=== PATIENT | female | born 1965 | race Hispanic/Latino ===

== ENCOUNTER 2021-08-19 02:48 | Emergency (ER) | payer SELFPAY | END 2021-08-19 03:50 | disposition home or self-care (01) | LOC: CSHERS 02:48 | DX: L72.3 Sebaceous cyst (principal) | CPT/HCPCS: 10060 ==

== ENCOUNTER 2022-01-05 19:01 | Emergency (ER) | payer SELFPAY ==
[2022-01-05] MEDS ORDERED: Mag-Al Plus 1200 MG/1200 MG/120 MG/30 ML UDCUP ONE (20:20)
[2022-01-05] MEDS ORDERED: Lidocaine Viscous Sol 2% 15 ml UD Cup ONE (20:20)
[2022-01-05] MEDS ORDERED: Sucralfate 1 GM/10 ML UDCUP ONE (20:22)
[2022-01-05] MEDS ORDERED: Dexamethasone 10 MG/ML VIAL ONE (20:22)
[2022-01-05] MEDS ORDERED: Ketorolac Tromethamine 30 MG/ML VIAL ONE (20:22)
[2022-01-05] MEDS ORDERED: Ondansetron PF 4 MG/2 ML Vial ONE (20:23)
[2022-01-05] MEDS ORDERED: Famotidine/PF 20 mg/2ml Vial ONE (20:23)
[2022-01-05 20:59] LABS: #Basophils 0.1 10x3/uL (0.0-0.2); #Eosinphils 0.7 10x3/uL (0.0-0.5); #Monocytes 0.5 10x3/uL (0.0-1.1); #Neutrophils 3.3 10x3/uL (1.5-8.4); %Eosinophils 9.8 % (0.0-6.0); %Lymphocytes 34.7 % (18.0-47.0); %Monocytes 7.1 % (0.0-10.0); %Neutrophils 47.1 % (40.0-75.0); Hemoglobin 12.2 g/dL (12.0-15.5); Mean Corpuscular Hemoglobin 30.3 pg (27.0-33.0); Mean Corpuscular Volume 89.1 fl (81.6-98.3); Mean Platelet Volume 11.3 fl (7.4-10.4); Platelet Count 222 10x3/uL (150-450); RBC Distribution Width 13.1 % (11.5-14.5); Red Blood Cell (RBC) Count 4.03 10x6/uL (3.90-5.03); White Blood Cell (WBC) Count 6.9 10x3/uL (3.5-10.5)
[2022-01-05 21:19] LABS: ALT (SGPT) 28 U/L (8-55); AST (SGOT) 24 U/L (5-34); Alkaline Phosphatase 74 U/L (40-110); Anion Gap 11 mmol/L (10-20); BUN (Urea Nitrogen) 12 mg/dL (9.8-20.1); Bilirubin, Total 0.2 mg/dL (0.2-1.2); Calc. Creatinine Clearance 0 mL/min (70-130); Calcium 9.3 mg/dL (7.8-10.44); Carbon Dioxide 24 mmol/L (22-29); Chloride 107 mmol/L (98-107); Estimated GFR 106; Globulin 2.6 g/dL (2.4-3.5); Glucose 114 mg/dL (70-105); Lipase 38 U/L (8-78); Potassium 3.9 mmol/L (3.5-5.1); Protein, Total 6.6 g/dL (6.0-8.3); Sodium 138 mmol/L (136-145)
[2022-01-05 21:34] LABS: Bilirubin Neg (Negative); Blood, Urine Negative (Negative); Clarity Cloudy (Clear); Glucose, Urine (Dipstick) Normal (Negative); Ketone, Urine Negative (Negative); Leukocyte Negative (Negative); Nitrite Negative (Negative); Protein, Urine (Dipstick) Negative (Neg-Trace); Specific Gravity, Urine 1.015 (1.005-1.030); Urobilinogen Normal mg/dL (Less than 2)
== END 2022-01-05 22:21 | disposition home or self-care (01) ==
LOC: CSHERS 19:01
DX: R10.13 Epigastric pain (principal); R51.9 Headache, unspecified
CPT/HCPCS: 71045; 80053; 81003; 83690; 85025; 93005; 96374; 96375; J1100; J1885; J2405; S0028